=== PATIENT | female | born 1950 | race Caucasian/White ===

== ENCOUNTER → 2018-05-18 | Outpatient (CLI) | payer MEDICARE, OTHER ==
[~2018-05-18] MED LIST: Augmentin 875-1 EACH PO; COREG; Cipro500 MG PO; LORA.5 PO; LOSA25 PO; Norco 5-325 Ta1 EACH PO; PARO10 PO; POTASSIUM; Zofran Odt8 MG SL
[2018-05-18 17:57] LABS: BASOPHILS ABSOLUTE AUTO 0.04 K/mm3 (0.00-0.23); BASOPHILS PERCENT AUTO 1 % (0-2); EOSINOPHILS ABSOLUTE AUTO 0.09 K/mm3 (0.00-0.68); EOSINOPHILS PERCENT AUTO 1 % (0-6); Hematocrit 35.8 % (33.0-51.0); Hemoglobin 12.5 g/dL (11.5-16.0); IMMATURE GRAN ABSOLUTE AUTO 0.01 K/mm3 (0.00-0.10); IMMATURE GRAN PERCENT AUTO 0 % (0-1); LYMPHOCYTES ABSOLUTE AUTO 1.92 K/mm3 (0.84-5.20); LYMPHOCYTES PERCENT AUTO 29 % (21-46); MONOCYTES ABSOLUTE AUTO 0.57 K/mm3 (0.16-1.47); MONOCYTES PERCENT AUTO 9 % (4-13); Mean Corpuscular HGB 30.9 pg (26.0-34.0); Mean Corpuscular HGB Conc 34.9 g/dL (31.5-36.5); Mean Corpuscular Volume 88 fL (80-100); Mean Platelet Volume 10.3 fL (9.1-12.4); NEUTROPHILS ABSOLUTE AUTO 4.08 K/mm3 (1.96-9.15); NEUTROPHILS PERCENT AUTO 61 % (41-73); Platelet Count 238 K/mm3 (150-400); RDW Coefficient Variation 13.3 % (11.7-14.2); Red Blood Cell Count 4.05 M/mm3 (3.80-5.20); White Blood Cell Count 6.71 K/mm3 (4.00-11.30)
[2018-05-18 18:09] LABS: Alanine Aminotransfer (ALT/SGP 27 U/L (12-78); Albumin, Blood 3.5 g/dL (3.4-5.0); Albumin/Globulin Ratio 1.1 (0.8-1.8); Alk Phos 54 U/L (40-126); Anion Gap 10 mmol/L (6-16); Aspartate Aminotrans (AST/SGOT 21 U/L (12-37); Bilirubin, Total 0.9 mg/dL (0.1-1.0); Blood Urea Nitrogen 16 mg/dL (8-24); Bun/Creatinine Ratio 19.5 (12.0-20.0); CO2, Blood 32 mmol/L (21-32); Calcium, Blood 8.6 mg/dL (8.5-10.1); Chloride, Blood 102 mmol/L (98-108); Creatinine, Blood 0.82 mg/dL (0.40-1.00); Globulin, Blood 3.1 g/dL (2.2-4.0); Glomerular Filtration Rate >60 (60-); Glucose, Blood 98 mg/dL (70-99); Potassium, Blood 2.6 mmol/L (3.5-5.5); Sodium, Blood 144 mmol/L (136-145); Total Protein, Blood 6.6 g/dL (6.4-8.2)
== END | disposition home or self-care (01) ==
LOC: LAB EV 17:53 → LAB SHORT 17:53
PROVIDERS: Physician Assistant
DX: R10.32 Left lower quadrant pain (principal)
CPT/HCPCS: 80053; 83690; 85025

== ENCOUNTER 2019-02-17 08:28 | Day surgery (SDC) | payer MEDICARE, OTHER ==
[~2019-02-17] VITALS: Ht 162.6 cm; Wt 60.9 kg
[~2019-02-17 08:28] MED LIST changes: +CARV6.25; +K-Dur20 MEQ; +LOSA50; +Paxil20 MG; +[UNRECOGNIZED DRUG - OTHER]
== END 2019-02-17 10:35 | disposition home or self-care (01) ==
LOC: ORSCSDS 08:28
PROVIDERS: Internal Medicine Gastroenterology
PROC: 0DBH8ZX Excision of Cecum, Via Natural or Artificial Opening Endoscopic, Diagnostic (ICD-10-PCS; principal; 2019-02-17 09:45)
DX: R19.4 Change in bowel habit (principal); D12.0 Benign neoplasm of cecum; Z80.0 Family history of malignant neoplasm of digestive organs; I10 Essential (primary) hypertension; Z79.899 Other long term (current) drug therapy
CPT/HCPCS: 88305; J2704; J7120

== ENCOUNTER → 2019-05-04 | Outpatient (CLI) | payer MEDICARE, OTHER | END | disposition home or self-care (01) | LOC: LAB SHORT 14:14 → LAB 14:14 → PLD 14:14 | DX: C44.311 Basal cell carcinoma of skin of nose (principal) | CPT/HCPCS: 88305; 88342 ==

== ENCOUNTER → 2019-05-24 | Outpatient (CLI) | payer MEDICARE, OTHER | END | disposition home or self-care (01) | LOC: LAB SHORT 15:23 → PLD 15:23 | DX: C44.311 Basal cell carcinoma of skin of nose (principal) | CPT/HCPCS: 88305 ==

== ENCOUNTER → 2020-09-19 | Outpatient (CLI) | payer MEDICARE, OTHER ==
[2020-09-20 10:20] LABS: Stool Occult Bld Immuno 1 Negative (NEGATIVE)
== END | disposition home or self-care (01) ==
LOC: LAB EV 16:00 → LAB SHORT 16:00
PROVIDERS: Student in an Organized Health Care Education/Training Program
DX: D64.9 Anemia, unspecified (principal)
CPT/HCPCS: 82274

== ENCOUNTER 2021-03-04 10:03 | Emergency (ER) | payer MEDICARE, OTHER ==
[~2021-03-04] VITALS: Ht 162.6 cm; Wt 64.4 kg
[~2021-03-04 10:03] MED LIST changes: -K-Dur20 MEQ; +K-Dur20 MEQ PO; -LOSA50; +LOSA50 PO; -Paxil20 MG; +Paxil20 MG PO
[2021-03-04 10:57] LABS: BASOPHILS ABSOLUTE AUTO 0.02 K/mm3 (0.00-0.23); BASOPHILS PERCENT AUTO 1 % (0-2); EOSINOPHILS ABSOLUTE AUTO 0.08 K/mm3 (0.00-0.68); EOSINOPHILS PERCENT AUTO 2 % (0-6); Hematocrit 29.4 % (33.0-51.0); IMMATURE GRAN ABSOLUTE AUTO 0.01 K/mm3 (0.00-0.10); IMMATURE GRAN PERCENT AUTO 0 % (0-1); LYMPHOCYTES ABSOLUTE AUTO 0.83 K/mm3 (0.84-5.20); LYMPHOCYTES PERCENT AUTO 21 % (21-46); MONOCYTES ABSOLUTE AUTO 0.22 K/mm3 (0.16-1.47); MONOCYTES PERCENT AUTO 6 % (4-13); Mean Corpuscular Volume 97 fL (80-100); Mean Platelet Volume 9.9 fL (9.1-12.4); NEUTROPHILS ABSOLUTE AUTO 2.73 K/mm3 (1.96-9.15); NEUTROPHILS PERCENT AUTO 70 % (41-73); Platelet Count 325 K/mm3 (150-400); RDW Coefficient Variation 13.5 % (11.7-14.2); RDW Standard Deviation 47.7 fL (35.1-46.3); Red Blood Cell Count 3.03 M/mm3 (3.80-5.20); White Blood Cell Count 3.89 K/mm3 (4.00-11.30)
[2021-03-04 11:19] LABS: Alanine Aminotransfer (ALT/SGP 30 U/L (12-78); Albumin, Blood 3.7 g/dL (3.4-5.0); Albumin/Globulin Ratio 1.1 (0.8-1.8); Alk Phos 58 U/L (50-136); Anion Gap 4 mmol/L (6-16); Aspartate Aminotrans (AST/SGOT 27 U/L (12-37); Bilirubin, Total 1.4 mg/dL (0.1-1.0); Blood Urea Nitrogen 18 mg/dL (8-24); Bun/Creatinine Ratio 20.1 (12.0-20.0); CO2, Blood 27 mmol/L (21-32); Calcium, Blood 8.7 mg/dL (8.5-10.1); Chloride, Blood 110 mmol/L (98-108); Globulin, Blood 3.3 g/dL (2.2-4.0); Glomerular Filtration Rate >60 (60-); Glucose, Blood 103 mg/dL (70-99); Potassium, Blood 3.6 mmol/L (3.5-5.5); Sodium, Blood 141 mmol/L (136-145); Troponin I <0.015 ng/mL (0.000-0.040)
[2021-03-04] MEDS ORDERED: AMLO5 PO (13:08)
== END 2021-03-04 15:08 | disposition home or self-care (01) ==
LOC: ER 10:03
PROVIDERS: Emergency Medicine
DX: I10 Essential (primary) hypertension (principal); H81.399 Other peripheral vertigo, unspecified ear; F41.9 Anxiety disorder, unspecified; Z79.899 Other long term (current) drug therapy
CPT/HCPCS: 36415; 71046; 80053; 84484; 85025; 93005; 93010; 99284-25; A9270

== ENCOUNTER → 2021-03-21 | Outpatient (CLI) | payer MEDICARE, OTHER ==
[~2021-03-21] MED LIST changes: +AMLO5 PO
== END | disposition home or self-care (01) ==
LOC: LAB 07:36 → LAB SHORT 07:36
DX: L91.0 Hypertrophic scar (principal)
CPT/HCPCS: 88305

== ENCOUNTER → 2022-04-30 | Outpatient (CLI) | payer MEDICARE, OTHER ==
[2022-04-30 17:21] LABS: BASOPHILS ABSOLUTE AUTO 0.03 K/mm3 (0.00-0.23); BASOPHILS PERCENT AUTO 1 % (0-2); EOSINOPHILS PERCENT AUTO 2 % (0-6); Hematocrit 29.1 % (33.0-51.0); Hemoglobin 10.3 g/dL (11.5-16.0); IMMATURE GRAN ABSOLUTE AUTO 0.02 K/mm3 (0.00-0.10); IMMATURE GRAN PERCENT AUTO 1 % (0-1); LYMPHOCYTES ABSOLUTE AUTO 0.78 K/mm3 (0.84-5.20); LYMPHOCYTES PERCENT AUTO 19 % (21-46); MONOCYTES ABSOLUTE AUTO 0.31 K/mm3 (0.16-1.47); MONOCYTES PERCENT AUTO 8 % (4-13); Mean Corpuscular HGB 35.3 pg (26.0-34.0); Mean Corpuscular Volume 100 fL (80-100); Mean Platelet Volume 12.5 fL (9.1-12.4); NEUTROPHILS ABSOLUTE AUTO 2.85 K/mm3 (1.96-9.15); NEUTROPHILS PERCENT AUTO 70 % (41-73); Platelet Count 320 K/mm3 (150-400); RDW Coefficient Variation 14.5 % (11.7-14.2); RDW Standard Deviation 51.1 fL (35.1-46.3); Red Blood Cell Count 2.92 M/mm3 (3.80-5.20); White Blood Cell Count 4.09 K/mm3 (4.00-11.30)
[2022-04-30 17:28] LABS: Mean Corpuscular HGB Conc 35.4 g/dL (31.5-36.5)
[2022-04-30 20:37] LABS: Albumin, Blood 3.6 g/dL (3.4-5.0); Albumin/Globulin Ratio 1.5 (0.8-1.8); Bilirubin, Total 1.4 mg/dL (0.1-1.0); Calcium, Blood 8.6 mg/dL (8.5-10.1); Creatinine, Blood 0.89 mg/dL (0.40-1.00); Globulin, Blood 2.4 g/dL (2.2-4.0); Potassium, Blood 3.5 mmol/L (3.5-5.5)
[2022-05-01 03:14] LABS: Microalb/Creat Ratio UR, Rand 14.682 mg/g (0.000-30.000); Microalbumin, Random Urine 39.2 mg/L (0.000-20.000)
== END | disposition home or self-care (01) ==
LOC: LAB SHORT 13:59
PROVIDERS: Family Medicine
DX: I10 Essential (primary) hypertension (principal)
CPT/HCPCS: 36415; 80053; 82043; 82570; 85025

== ENCOUNTER 2024-05-25 21:10 | Emergency (ER) | payer MEDICARE, OTHER ==
[~2024-05-25] VITALS: Ht 162.6 cm; Wt 68.0 kg
[2024-05-25] MEDS ORDERED: Carvedilol 6.25 MG Tab PO ONE (22:10)
[2024-05-25 22:22] LABS: Albumin/Globulin Ratio 1.2 (0.8-1.8); Bilirubin, Total 1.7 mg/dL (0.1-1.0); Calcium, Blood 9.2 mg/dL (8.5-10.1); Creatinine, Blood 1.05 mg/dL (0.40-1.00); Globulin, Blood 3.3 g/dL (2.2-4.0); Potassium, Blood 6.2 mmol/L (3.5-5.5); Total Protein, Blood 7.3 g/dL (6.4-8.2)
[2024-05-25 22:24] LABS: BASOPHILS ABSOLUTE AUTO 0.05 K/mm3 (0.00-0.23); BASOPHILS PERCENT AUTO 1 % (0-2); EOSINOPHILS ABSOLUTE AUTO 0.16 K/mm3 (0.00-0.68); EOSINOPHILS PERCENT AUTO 2 % (0-6); Hematocrit 30.1 % (33.0-51.0); Hemoglobin 10.7 g/dL (11.5-16.0); IMMATURE GRAN ABSOLUTE AUTO 0.03 K/mm3 (0.00-0.10); IMMATURE GRAN PERCENT AUTO 0 % (0-1); LYMPHOCYTES ABSOLUTE AUTO 1.78 K/mm3 (0.84-5.20); LYMPHOCYTES PERCENT AUTO 23 % (21-46); MONOCYTES ABSOLUTE AUTO 0.43 K/mm3 (0.16-1.47); MONOCYTES PERCENT AUTO 6 % (4-13); Mean Corpuscular HGB 35.7 pg (26.0-34.0); Mean Corpuscular HGB Conc 35.5 g/dL (31.5-36.5); Mean Corpuscular Volume 100 fL (80-100); Mean Platelet Volume 11.1 fL (9.1-12.4); NEUTROPHILS ABSOLUTE AUTO 5.19 K/mm3 (1.96-9.15); NEUTROPHILS PERCENT AUTO 68 % (41-73); Platelet Count 334 K/mm3 (150-400); RDW Standard Deviation 52.3 fL (35.1-46.3); White Blood Cell Count 7.64 K/mm3 (4.00-11.30)
[2024-05-25 23:18] LABS: Calcium, Blood 8.8 mg/dL (8.5-10.1)
[2024-05-25 23:19] LABS: Potassium, Blood 3.2 mmol/L (3.5-5.5)
[2024-05-25 23:24] VITALS: BP 181/104
== END 2024-05-25 23:45 | disposition home or self-care (01) ==
LOC: ER 21:10
PROVIDERS: Emergency Medicine; Physician Assistant
DX: I48.91 Unspecified atrial fibrillation (principal); Z79.899 Other long term (current) drug therapy
CPT/HCPCS: 71046; 80048; 80053; 84484; 85025; 93005; 93010; 99285-25; A9270

== ENCOUNTER 2024-07-05 07:46 | Day surgery (SDC) | payer MEDICARE, OTHER ==
[2024-07-05] VITALS (11 sets, daily range): BP systolic 150–201; BP diastolic 76–95
[~2024-07-05] VITALS: Ht 160 cm; Wt 68.0 kg
[2024-07-05] MEDS ORDERED: propofoL 20 ML IV ONE ×2 (07:48→08:45)
[2024-07-05] MEDS ORDERED: FentaNYL Citrate 50 MCG/ML 2 ML Injection ONE (07:48)
[2024-07-05] MEDS ORDERED: Dexamethasone Sod Phos 10 MG/ML 1ML VIAL ONE (07:49)
[2024-07-05] MEDS ORDERED: Ondansetron HCl 2 MG / ML 2ML Vial ONE (07:49)
[2024-07-05] MEDS ORDERED: Lactated Ringer's 1,000 ML IV SCH (07:50)
[2024-07-05] MEDS ORDERED: CeFAZolin Sodium 2,000 MG in NS 100 ML IV SCH (07:50)
[2024-07-05] MEDS ORDERED: CeFAZolin Sodium 2,000 MG VIAL ONE (08:25)
[2024-07-05] MEDS ORDERED: Lidocaine HCl 1% 30 ML SDV ONE (08:26)
[2024-07-05] MEDS ORDERED: Atropine Sulfate 0.4 MG/1 ML Vial ONE (09:13)
--- NOTE | 2024-07-05 09:14 | NUR ---
07/05/24 0914 Adali Ontiveros IV IN LT AC INFILTRATED AFTER PROPOFOL WAS GIVEN. NEW 22G IV STARTED IN THE LEFT HAND. PT AWAKE AND TOLERATED THIS VERY WELL.
[2024-07-05] MEDS ORDERED: OxyCODONE 5 mg/Acetamin 325 mg TABLET PO PRN (09:50)
== END 2024-07-05 23:22 | disposition home or self-care (01) ==
LOC: ORSCMMR 07:46 → ORD 08:45 → ORSCMMR 08:45
PROVIDERS: Surgery
PROC: 0JH63WZ Insertion of Totally Implantable Vascular Access Device into Chest Subcutaneous Tissue and Fascia, Percutaneous Approach (ICD-10-PCS; principal; 2024-07-05 08:45)
PROC: 05HM33Z Insertion of Infusion Device into Right Internal Jugular Vein, Percutaneous Approach (ICD-10-PCS; principal; 2024-07-05 08:45)
PROC: B543ZZA Ultrasonography of Right Jugular Veins, Guidance (ICD-10-PCS; principal; 2024-07-05 08:45)
DX: D59.12 Cold autoimmune hemolytic anemia (principal); I10 Essential (primary) hypertension; I48.91 Unspecified atrial fibrillation; Z79.01 Long term (current) use of anticoagulants; E78.5 Hyperlipidemia, unspecified; F41.9 Anxiety disorder, unspecified; E87.6 Hypokalemia; Z79.899 Other long term (current) drug therapy; F32.9 Major depressive disorder, single episode, unspecified
CPT/HCPCS: 77001; C1788; J0461; J0690; J1100; J1642; J2405; J2704; J3010; J7120

== ENCOUNTER 2024-08-01 15:59 | Emergency (ER) | payer MEDICARE, OTHER ==
[~2024-08-01] VITALS: Ht 162.6 cm; Wt 65.8 kg
[2024-08-01] MEDS ORDERED: Metoprolol Tartrate 1 MG/ML 5 ML VIAL IV PRN (16:20)
[2024-08-01] MEDS ORDERED: NS 1,000 ML IV SCH (16:20)
[2024-08-01] MEDS ORDERED: SULFAMETHOXAZO1 EAC1 (16:37)
[2024-08-01] MEDS ORDERED: ONDA4ODT MM (16:38)
[2024-08-01] MEDS ORDERED: ELIQUIS5 M2 PO (16:38)
[2024-08-01 16:55] LABS: Albumin, Blood 3.5 g/dL (3.4-5.0); Albumin/Globulin Ratio 1.6 (0.8-1.8); Bilirubin, Total 1.9 mg/dL (0.1-1.0); Bun/Creatinine Ratio 13.8 (12.0-20.0); Calcium, Blood 8.6 mg/dL (8.5-10.1); Creatinine, Blood 0.94 mg/dL (0.40-1.00); Globulin, Blood 2.2 g/dL (2.2-4.0); Potassium, Blood 3.2 mmol/L (3.5-5.5); Total Protein, Blood 5.7 g/dL (6.4-8.2)
[2024-08-01] MEDS ORDERED: Carvedilol 6.25 MG Tab PO ONE (16:55)
[2024-08-01] MEDS ORDERED: Potassium Chloride 20 MEQ TabCR PO ONE (17:05)
[2024-08-01 17:09] LABS: BASOPHILS ABSOLUTE AUTO 0.02 K/mm3 (0.00-0.23); BASOPHILS PERCENT AUTO 1 % (0-2); EOSINOPHILS ABSOLUTE AUTO 0.06 K/mm3 (0.00-0.68); EOSINOPHILS PERCENT AUTO 2 % (0-6); IMMATURE GRAN ABSOLUTE AUTO 0.02 K/mm3 (0.00-0.10); IMMATURE GRAN PERCENT AUTO 1 % (0-1); LYMPHOCYTES ABSOLUTE AUTO 0.08 K/mm3 (0.84-5.20); LYMPHOCYTES PERCENT AUTO 2 % (21-46); MONOCYTES ABSOLUTE AUTO 0.29 K/mm3 (0.16-1.47); MONOCYTES PERCENT AUTO 7 % (4-13); Mean Platelet Volume 10.5 fL (9.1-12.4); NEUTROPHILS ABSOLUTE AUTO 3.62 K/mm3 (1.96-9.15); NEUTROPHILS PERCENT AUTO 88 % (41-73); Platelet Count 183 K/mm3 (150-400); RDW Coefficient Variation 13.1 % (11.7-14.2); RDW Standard Deviation 45.3 fL (35.1-46.3); White Blood Cell Count 4.09 K/mm3 (4.00-11.30)
[2024-08-01 17:52] LABS: Hemoglobin 10.9 g/dL (11.5-16.0); Red Blood Cell Count 3.13 M/mm3 (3.80-5.20)
[2024-08-01 17:53] LABS: Hematocrit 29.9 % (33.0-51.0); Mean Corpuscular HGB 34.8 pg (26.0-34.0); Mean Corpuscular HGB Conc 36.5 g/dL (31.5-36.5); Mean Corpuscular Volume 96 fL (80-100)
[2024-08-01 18:30] VITALS: BP 144/84
== END 2024-08-01 18:55 | disposition home or self-care (01) ==
LOC: ER 15:59
PROVIDERS: Student in an Organized Health Care Education/Training Program
DX: I48.0 Paroxysmal atrial fibrillation (principal); T45.516A Underdosing of anticoagulants, initial encounter; Z91.148 Patient's other noncompliance with medication regimen for other reason; Z79.899 Other long term (current) drug therapy
CPT/HCPCS: 80053; 83880; 84484; 85025; 93005; 93010; 96361; 96374; 99284-25; A9270; J7030

== ENCOUNTER 2024-08-27 02:16 | Day surgery (SDC) | payer MEDICARE, OTHER ==
[2024-08-25 16:29] LABS: Albumin, Blood 3.6 g/dL (3.4-5.0); Albumin/Globulin Ratio 1.4 (0.8-1.8); Bilirubin, Total 2.2 mg/dL (0.1-1.0); Bun/Creatinine Ratio 11.6 (12.0-20.0); Calcium, Blood 8.6 mg/dL (8.5-10.1); Creatinine, Blood 1.12 mg/dL (0.40-1.00); Globulin, Blood 2.5 g/dL (2.2-4.0); Potassium, Blood 3.6 mmol/L (3.5-5.5); Total Protein, Blood 6.1 g/dL (6.4-8.2)
[2024-08-25 16:48] LABS: BASOPHILS ABSOLUTE AUTO 0.02 K/mm3 (0.00-0.23); BASOPHILS PERCENT AUTO 1 % (0-2); EOSINOPHILS ABSOLUTE AUTO 0.11 K/mm3 (0.00-0.68); EOSINOPHILS PERCENT AUTO 4 % (0-6); Hematocrit 22.7 % (33.0-51.0); Hemoglobin 7.9 g/dL (11.5-16.0); IMMATURE GRAN ABSOLUTE AUTO 0.01 K/mm3 (0.00-0.10); IMMATURE GRAN PERCENT AUTO 0 % (0-1); LYMPHOCYTES PERCENT AUTO 26 % (21-46); MONOCYTES ABSOLUTE AUTO 0.18 K/mm3 (0.16-1.47); MONOCYTES PERCENT AUTO 7 % (4-13); Mean Corpuscular Volume 100 fL (80-100); NEUTROPHILS ABSOLUTE AUTO 1.71 K/mm3 (1.96-9.15); NEUTROPHILS PERCENT AUTO 63 % (41-73); NRBC ABSOLUTE 0.02 K/mm3 (0.00-0.02); NRBC Auto 0.7 /100 WBC (0.0-0.2); Platelet Count 173 K/mm3 (150-400); RDW Coefficient Variation 15.6 % (11.7-14.2); RDW Standard Deviation 54.4 fL (35.1-46.3); Red Blood Cell Count 2.26 M/mm3 (3.80-5.20); White Blood Cell Count 2.73 K/mm3 (4.00-11.30)
[2024-08-25 16:49] LABS: Mean Corpuscular HGB Conc 34.8 g/dL (31.5-36.5)
[2024-08-27] VITALS (7 sets, daily range): BP systolic 124–215; BP diastolic 77–106
[~2024-08-27 02:16] MED LIST changes: +ELIQUIS5 M2 PO; +ONDA4ODT MM; +SULFAMETHOXAZO1 EAC1
[2024-08-27] MEDS ORDERED: NS 250 ML IV SCH (07:05)
[2024-08-27 08:35] LABS: HAPTOGLOBIN <10 mg/dL (30-200)
--- NOTE | 2024-08-27 10:55 | NUR ---
PATIENT BP HAS CONTINUED TO TREND UPWARD HIGH 194/96. PATIENT IS ASYMPTOMATIC AT THIS TIME AND TOLERATING HER WARMED BLOOD TRANSFUSION WELL. NOTIFIED DR LIU OFFICE, MARQUEZ SNOWDEN, WHO SAID THAT LONG SHE IS ASYMPTOMATIC, JUST CONTINUE TO MONITOR. SHE SAID THAT SHE HAS RAN THIS HIGH OF A BP IN THE OFFICE RECENTLY WELL. WILL CONT TO MONITOR AND NOTIFY DR LIU OFFICE WITH ANY CHANGES
--- NOTE | 2024-08-27 11:26 | NUR ---
Pt transferred to ER via WC per MARLENA RN.
[2024-08-27] MEDS ORDERED: ACYC400 PO (12:36)
[2024-08-27] MEDS ORDERED: PROM25 PO (12:36)
[2024-08-27] MEDS ORDERED: OLAN2.5 PO (12:38)
== END 2024-08-27 23:00 | disposition home or self-care (01) ==
LOC: ATC 02:16 → EDSTATUS 07:30 → ATC 23:00
PROVIDERS: Internal Medicine Hematology & Oncology
DX: D59.12 Cold autoimmune hemolytic anemia (principal); I10 Essential (primary) hypertension; Z79.01 Long term (current) use of anticoagulants; Z79.899 Other long term (current) drug therapy
CPT/HCPCS: 36415; 36430; 80053; 83010; 83615; 85025; 86850; 86900; 86901; 86923; J7050; P9016

== ENCOUNTER 2024-08-27 11:34 | Emergency (ER) | payer MEDICARE, OTHER ==
[~2024-08-27] VITALS: Ht 162.6 cm; Wt 68.0 kg
[2024-08-27] MEDS ORDERED: Ondansetron HCl 2 MG / ML 2ML Vial IV PRN (11:55)
[2024-08-27 12:31] LABS: Albumin, Blood 3.6 g/dL (3.4-5.0); Albumin/Globulin Ratio 1.2 (0.8-1.8); Bilirubin, Total 4.9 mg/dL (0.1-1.0); Bun/Creatinine Ratio 18.7 (12.0-20.0); Calcium, Blood 8.3 mg/dL (8.5-10.1); Creatinine, Blood 0.96 mg/dL (0.40-1.00); Globulin, Blood 2.9 g/dL (2.2-4.0); Potassium, Blood 4.7 mmol/L (3.5-5.5); Total Protein, Blood 6.5 g/dL (6.4-8.2)
[2024-08-27] MEDS ORDERED: ACYC400 PO (12:36)
[2024-08-27] MEDS ORDERED: PROM25 PO (12:36)
[2024-08-27] MEDS ORDERED: OLAN2.5 PO (12:38)
[2024-08-27] MEDS ORDERED: Labetalol HCL 5 MG/ML 4ML Injection (Single Dose) IV ONE (12:45)
[2024-08-27 12:52] LABS: BASOPHILS ABSOLUTE AUTO 0.03 K/mm3 (0.00-0.23); BASOPHILS PERCENT AUTO 1 % (0-2); EOSINOPHILS PERCENT AUTO 3 % (0-6); Hematocrit 28.4 % (33.0-51.0); Hemoglobin 9.9 g/dL (11.5-16.0); IMMATURE GRAN ABSOLUTE AUTO 0.01 K/mm3 (0.00-0.10); IMMATURE GRAN PERCENT AUTO 0 % (0-1); LYMPHOCYTES ABSOLUTE AUTO 1.16 K/mm3 (0.84-5.20); LYMPHOCYTES PERCENT AUTO 38 % (21-46); MONOCYTES ABSOLUTE AUTO 0.16 K/mm3 (0.16-1.47); MONOCYTES PERCENT AUTO 5 % (4-13); Mean Corpuscular HGB 34.7 pg (26.0-34.0); Mean Corpuscular Volume 100 fL (80-100); Mean Platelet Volume 9.6 fL (9.1-12.4); NEUTROPHILS ABSOLUTE AUTO 1.59 K/mm3 (1.96-9.15); NEUTROPHILS PERCENT AUTO 52 % (41-73); Platelet Count 162 K/mm3 (150-400); RDW Coefficient Variation 15.9 % (11.7-14.2); RDW Standard Deviation 55.8 fL (35.1-46.3); Red Blood Cell Count 2.85 M/mm3 (3.80-5.20); White Blood Cell Count 3.05 K/mm3 (4.00-11.30)
[2024-08-27 12:56] LABS: Mean Corpuscular HGB Conc 34.9 g/dL (31.5-36.5)
[2024-08-27] MEDS ORDERED: HydrALAZINE HCl 20 MG / ML 1ML Vial IV ONE (13:45)
[2024-08-27 14:45] VITALS: BP 177/93
== END 2024-08-27 15:15 | disposition home or self-care (01) ==
LOC: ER 11:34
PROVIDERS: Student in an Organized Health Care Education/Training Program
DX: T80.92XA Unspecified transfusion reaction, initial encounter (principal); I10 Essential (primary) hypertension; R06.02 Shortness of breath; Z79.899 Other long term (current) drug therapy; Z79.01 Long term (current) use of anticoagulants
CPT/HCPCS: 71046; 80053; 83690; 84484; 85025; 93005; 93010; 96374; 96375; 99285-25; J0360; J1642